=== PATIENT | female | born 1990 | race Two or more races ===

== ENCOUNTER 2022-11-11 23:34 | Emergency (ER) | payer MEDICAID, OTHER ==
[~2022-11-11 23:34] MED LIST: CEPH-322 PO; PREN29CH2 PO
[2022-11-12 00:44] VITALS: BP 126/80
== END 2022-11-12 05:03 | disposition home or self-care (01) ==
LOC: ER 23:34
DX: S29.9XXA Unspecified injury of thorax, initial encounter (principal); V43.62XA Car passenger injured in collision with other type car in traffic accident, initial encounter; Y93.89 Activity, other specified; Y92.488 Other paved roadways as the place of occurrence of the external cause; Y99.8 Other external cause status
CPT/HCPCS: 71045

== ENCOUNTER 2022-12-27 19:07 | Emergency (ER) | payer MEDICAID, OTHER ==
[~2022-12-27] VITALS: Ht 160 cm; Wt 64.0 kg
[2022-12-27 23:45] VITALS: BP 132/76
== END 2022-12-27 23:45 | disposition home or self-care (01) ==
LOC: ER 19:07
DX: Z00.00 Encounter for general adult medical examination without abnormal findings (principal); V43.62XA Car passenger injured in collision with other type car in traffic accident, initial encounter; Y93.89 Activity, other specified; Y92.89 Other specified places as the place of occurrence of the external cause; Y99.8 Other external cause status